=== PATIENT | male | born 1960 | race Caucasian/White ===

== ENCOUNTER 2021-02-12 06:30 | Inpatient (IN) ==
--- NOTE | 2021-01-17 10:52 | PAT Medication Instructions ---
Medication Instructions Date of Service January 17, 2021 Home Medications amlodipine [Norvasc] 5 mg PO QAM celecoxib [Celebrex] 200 mg PO QAM lisinopril 40 mg PO QAM ASK your surgeon for instructions celecoxib [Celebrex] 200 mg PO QAM DO NOT take the morning of surgery lisinopril 40 mg PO QAM Take morning of surgery With a small sip of water, OTHERWISE NOTHING TO EAT OR DRINK AFTER MIDNIGHT: amlodipine [Norvasc] 5 mg PO QAM Other Notes If you have any questions please call us at [phone] or [phone] or [phone] or [phone]
--- NOTE | 2021-01-20 14:13 | Anesthesiology Consultation ---
Date of Service January 20, 2021 Assessment & Plan (1) Encounter for pre-operative examination: - Abnormal preop EKG: LBBB and TWA (consider inferior ischemia) on preop EKG. Will arrange preop cardiology evaluation. - COVID screening: Per assessment on 01/20: Travel screen negative, no known COVID-19 positive contacts or current COVID-19 related symptoms. Surgeon arranging preop COVID testing. Awaiting results. Chart Review Chart Review: Patient seen in Pre Admission Testing Teaching & Discussion Pre-Anesthesia Teaching/Discussion Notes: Instructed NPO after midnight before surgery,except medications with 15 cc of water. Medication instructions provided according to the PAT guidelines. History Surgery Operation Date: 02/12/21 09:40 Proposed Procedures p Right Total Knee Arthroplasty - Nas Larkin DO Height/Weight Height: 6 ft 1 in Weight: 107.5 kg Allergies Allergy/AdvReac Type Severity Reaction Status Date / Time No Known Allergies Allergy Verified 12/25/20 08:52 Medications Home Medications Medication Instructions Recorded Confirmed Last Taken amlodipine [Norvasc] 5 mg PO QAM 12/25/20 12/25/20 Unknown celecoxib [Celebrex] 200 mg PO QAM 12/25/20 12/25/20 Unknown lisinopril 40 mg PO QAM 12/25/20 12/25/20 Unknown Past Medical History Medical History Hypertension Obesity Osteoarthritis Exercise / Class Metabolic Activity II 4-5 Yardwork/Stairs/Walk up hill (one FS (no CP, no SOB)) Past Surgical History Surgical History Hx of colonoscopy Past Anesthesia History No Hx of Anesthesia Complications Youngest sister: "slow to wake" History of PONV No Hx of PONV and Hx of Motion Sickness (Minimal) Social History Smoking Status: Never smoker Do You Dip or Chew Tobacco: Yes (1 can/2 days (advised none DOS)) Hx Alcohol Use: Yes alcohol intake frequency: holidays/special occasions only Hx Substance Use: No substance use type: does not use Review of Systems Patient denies chest pain, shortness of breath, dyspnea on exertion, fever, chills, cough, wheezing, palpitations. Physical Exam Vital Signs VITALS BP 125/82 P 76 TEMP 98.6 SP02 96%RA RESP 16 PHYSICAL Full cervical extension range of motion. Full TMJ range of motion. TMD 3.5 finger breaths Mallampati Score 3 Dentition: intact Lungs: clear throughout to auscultation Cardiac: regular rate and rhythm, I/ systolic murmur Spine: normal Carotid arteries: negative bruit Extremities: no edema Lab Results Anesthesia Preop Results Results Anesthesia Widget: WBC 7.24 K/uL (4.8-10.8) 01/20/21 Hgb 14.7 g/dL (14.0-18.0) 01/20/21 Hct 42.9 % (42-52) 01/20/21 Plt 284 K/uL (130-400) 01/20/21 Na 143 mmol/L (136-145) 01/20/21 K 4.3 mmol/L (3.5-5.1) 01/20/21 Cl 110 mmol/L (98-107) H 01/20/21 CO2 27 mmol/L (21-32) 01/20/21 BUN 19 mg/dl (7-18) H 01/20/21 Creat 1.13 mg/dl (0.6-1.4) 01/20/21 Glucose Level 112 mg/dl (70-99) H 01/20/21 PT 10.0 Seconds (9.0-12.0) 01/20/21 PTT 27.6 Seconds (21.0-31.0) 01/20/21 INR 1.0 (0.9-1.1) 01/20/21 HA1c 5.8 % (4.5-5.6) H 01/20/21 Urine Color Yellow 01/20/21 Urine Appearance Clear (Clear) 01/20/21 Urine pH 5.0 (4.5-7.5) 01/20/21 Urine Specific [place] 1.014 (1.000-1.030) 01/20/21 Urine Protein Negative (Negative) 01/20/21 Urine Glucose (UA) Negative (Negative) 01/20/21 Urine Ketones Negative (Negative) 01/20/21 Urine Blood Negative (Negative) 01/20/21 Urine Nitrite Negative (Negative) 01/20/21 Urine Bilirubin Negative (Negative) 01/20/21 Urine Urobilinogen Negative (Negative) 01/20/21 Urine Leukocyte Esterase Negative (Negative) 01/20/21 Blood Type O Positive 01/20/21 Antibody Screen NEGATIVE 01/20/21 Testing Electrocardiogram Date: 01/20/21 SR with occasional PVCs at 71bpm. LBBB. TWA, consider inferior ischemia. Chest X-Ray Date: 01/20/21 FINDINGS: The heart is enlarged. There is no failure. There is no focal pulmonary consolidation. There are no pleural effusions.[ IMPRESSION: No active disease in the chest.
--- NOTE | 2021-02-05 10:55 | History & Physical Report ---
Date of Service February 05, 2021 date of surgery: 02/12/21 Procedure: Right Total Knee Arthroplasty Assessment & Plan (1) Arthritis of right knee: Plan: Further care discussed with patient and at this point in time has failed conservative measures and would like to proceed with a Right total knee replacement. Plan on discharge will be home with home health physical therapy. DVT prophalaxis with TEDs, SCDs and will also place on aspirin 81 mg p.o. b.i.d. for a month postop. Patient will have follow up appointment in our office two weeks post op for staple/suture removal and re-evaluation. Patient otherwise has no other questions or concerns. History of Present Illness Chief Complaint: Right knee pain Primary Care Provider: ALANNA PCP Alex is a 60 year old male who complains of right knee pain, presents for pre-op evaluation prior to a right total knee replacement by Dr Larkin at [facility]. he complains of pain, decreased range of motion and stiffness in his right knee. Currently the patient states that the symptoms are moderate-severe and rated as 6/10. The pain is described as aching, sharp and throbbing. His symptoms are aggravated by ascending stairs, daily activities, first steps while awake walking. Prior NSAIDs include IBU, Celebrex and Aleve. he has been treated with previous visco and cortisone injections in the past without much relief. Allergies Allergy/AdvReac Type Severity Reaction Status Date / Time No Known Allergies Allergy Verified 12/25/20 08:52 Home Medications Medication Instructions Recorded Confirmed Type amlodipine 5 mg tablet (Norvasc) 5 mg PO QAM 12/25/20 12/25/20 History celecoxib 200 mg capsule (Celebrex) 200 mg PO QAM 12/25/20 12/25/20 History lisinopril 40 mg tablet 40 mg PO QAM 12/25/20 12/25/20 History Past Med/Surg History Medical History Hypertension Obesity Osteoarthritis Surgical History Hx of colonoscopy Social History Smoking Status: Never smoker Second Hand Exposure: No; Hx Alcohol Use: Yes Hx Substance Use: No Preferred Language: Mongolian Communication Ability: Effective Talent Development Specialist Required: No Beliefs That Will Affect Care: None Current Living Situation: Spouse Feels Safe at Home: Yes Assistive Devices: Glasses Review of Systems Review of Systems: All systems reviewed & are unremarkable except as noted in HPI & below Constitutional: no fever, no chills and no sweats Respiratory: no cough and no dyspnea Cardiovascular: no chest pain, no dyspnea and no orthopnea Gastrointestinal: no abdominal pain, no nausea and no vomiting Musculoskeletal: as per Subjective / HPI Physical Exam Physical Exam: HT: 6ft 1in WT: 107.5kg Constitutional: WD/WN, vitals as above no acute distress Respiratory: normal respiratory effort, lungs clear to auscultation no respiratory distress, no labored breathing and does not use accessory muscles Cardiovascular: RRR, no murmur, no edema Gastrointestinal (Abdomen): normal bowel sounds, soft, nontender, no hepatosplenomegaly Musculoskeletal: Knee: + knee abnormal to inspection (Right Knee), + effusion (+1 effusion), + limited ROM of knee (ROM 0/3/110), + knee ROM with crepitation, + joint line tenderness (medial joint line) and + Brenda's sign positive; no deformity, no skin erythema, no ecchymosis, no valgus laxity, no varus laxity, anterior drawer test negative, Darell's sign negative and pivot shift test negative exam above in relation to patients right knee: Results & Data Results & Data ([facility]) Diagnostic Findings Right Knee X-ray: Right knee series showing advanced degenerative changes to the right knee, narrowing of the medial compartment and patello-femoral joint with patellar spurring noted, findings showing joint space narrowing of the medial compartment and patello-femoral joint, osteophyte formation and subchondral sclerosis noted. overall varus alignment. no acute bony pathology noted.
[~2021-02-12 06:30] MED LIST: ACETAMINOPHEN 500 MG TAB PO SCH; CeleBREX 200 MG CAP PO SCH; FAMOTIDINE 20 MG TAB PO SCH; GABAPENTIN 600 MG DOSE PO SCH; LR 500ML BOLUS, THEN 15ML/HR IV SCH; METOCLOPRAMIDE HCL 10 MG TABLET PO SCH; ROPIVACAINE 0.5% HCL/PF 150 MG, BUPIVACAINE 0.75% MPF 20 ML, EPINEPHrine 30MG/30ML (OR ... INSTIL SCH; TRANEXAMIC ACID 1,000 MG **IV Intra-op IV SCH; TRANEXAMIC ACID 1,000 MG **IV Pre-op IV SCH; ceFAZolin 2000MG 2,000 MG/15 ML SYR IV SCH; dexAMETHasone 4 MG TAB PO SCH
[2021-02-12] MEDS ORDERED: BUPIVACAINE 0.25% 30 ML VIAL ONE (06:35)
[2021-02-12] MEDS ORDERED: BUPIVACAINE 0.5 % 5 MG/1 ML PF 10ML VIAL ONE (06:35)
[2021-02-12] MEDS ORDERED: MIDAZOLAM HCL 1 MG/ML 2ML VIAL ONE (09:16)
[2021-02-12] MEDS ORDERED: fentaNYL citrate 100 MCG/2 ML VIAL ONE (09:16)
--- NOTE | 2021-02-12 09:36 | History & Physical Bridge Note ---
Date of Service February 12, 2021 History & Physical Bridge Note I have examined the patient, reviewed the History & Physical and in the interval since the performance of the History & Physical I have noted the following changes of clinical significance: no changes noted
[2021-02-12] MEDS ORDERED: ePHEDrine sulfate 50 MG/ML AMP IV PRN (10:05)
[2021-02-12] MEDS ORDERED: ATROPINE SULFATE 0.1 MG/ML 10ML SYR IV PRN (10:05)
[2021-02-12] MEDS ORDERED: ONDANSETRON INJ 2 MG/ML 2 ML VIAL IV PRN ×2 (10:05→14:06)
[2021-02-12] MEDS ORDERED: fentaNYL citrate 100 MCG/2 ML VIAL IV PRN (10:05)
[2021-02-12] MEDS ORDERED: ORTHO JOINT ANESTHETIC ONE (10:17)
--- NOTE | 2021-02-12 11:54 | Operative Report ---
Post Operative Report Pre & Post Diagnosis Operation Date: 02/12/21 09:25 Pre-Op Diagnosis: Unilateral Primary Osteoarthritis, Right Knee I identified the patient and participated in the time-out.: Yes Procedure Operation Date: 02/12/21 09:25 Actual Procedures p Right Total Knee Arthroplasty(Right) utilizing [employer] persona size 12 femur right CR tibia size G polysize 13 patella 34 oval- Nas Larkin DO Surgeon Nas Larkin DO Multifold Operator Billy ARREDONDO Estimated Blood Loss 5 Findings Consistent with Post-Op Diagnosis Patient presents with severe end-stage DJD right knee varus alignment subchondral cystic changes marginal osteophytes [id number] eburnated bone moderate to large effusion Specimens Bone and cartilage Drains Medium bore Hemovac Anesthesia Type MAC Spinal Regional Complications none Disposition Accompanied Patient To Recovery: No Disposition: Recovery Room Indications Patient presents with severe end-stage DJD right knee no response to conservative management clinic physical therapy anti-inflammatories relative rest activity modification corticosteroid injection viscosupplementation the above intraoperative findings were noted. Description of Procedure After proper prepping and draping of the Right lower extremity anterior midline incision was made over the region of the extensor extensor mechanism after meticulous hemostasis was obtained and maintained in subcutaneous tissues a medial parapatellar incision was made The patella was subluxed lateralward the medial lateral gutter were cleaned from any hypertrophic synovitis and scar tissue of the distal femoral block was placed and the distal femoral osteotomy cut was made subsequently the chamfers anterior and posterior osteotomy cuts were made utilizing the 4-in-1 block the tibia was subsequently subluxed anteriorward medial and ateral meniscal remnants were excised in their entirety remnants of the anterior and posterior cruciate ligaments were excised in their entirety excellent exposure of the proximal tibia was obtained the tibial osteotomy guide was placed on the proximal tibial osteotomy cut was made once again the knee was irrigated with copious amounts of sterile saline solution the patella was subsequently everted lateralward thickened scar tissue around the patella was removed the patella was subsequently cut utilizing a freehand technique and was drilled prepared for final preparation and placement of patella socially flexion-extension gaps were checked and the equal and symmetric trials were placed to the appropriate femoral and tibial trials with poly-spacer being placed for equal flexion and extension gaps and full range of motion including extension to 0 and flexion to 140 the trial components after having been taken to recovery range of motion was subsequently removed meticulous hemostasis was obtained and maintained subsequently a knee block injection of joint cocktail including ropivacaine 0.5% 150 mg. Bupivacaine 0.5% epinephrine 1-200,030 mL's toradol 30 mg dexamethasone 4 mg ketamine 10 mg clonidine 100 micrograms normal saline solution 30 mg was infiltrated into the soft tissues of the posterior knee medial lateral gutters and periosteal synovium special attention was paid to protect neurovascular structures at all times subsequently trial components having been removed the knee was irrigated with sterile saline solution. debris was removed the proximal tibia was subsequently prepared and was made ready for the placement of the tibial component tibial component was also cemented and tamped into position the femoral component was subsequently placed and cemented in the position the patellar component was subsequently cemented in position because hemostasis once again obtained and maintained wound having been thoroughly irrigated with debridement and debridement lavage was performed as well as a medial parapatellar incision closed with #1 Vicryl in interrupted fashion subcutaneous was closed with #2 Vicryl skin was closed with skin clips. PA-C was necessary for prepping and drapping as well as wound closure of deep fascia Sub cutaneous tissue and skin and was necessary for the case. A sterile compressive dressing was placed patient was taken to recovery in stable condition of report dictated by Trae I attest to the content of the Intraoperative Record and any orders documented therein. Any exceptions are noted below. I attest to the content of the Intraoperative Record and any orders documented therein. Any exceptions are noted below.
--- NOTE | 2021-02-12 13:11 | XRay Report ---
XR knee RT 1 or 2V routine HISTORY: 60 years-old Male Surgical Post Op right knee total joint arthroplasty COMPARISON: None TECHNIQUE: 2 views the right knee FINDINGS: Right knee total joint arthroplasty and patella resurfacing. Expected postoperative soft tissue swell ing with deep tissue air. No acute fracture, dislocation or unexpected opaque foreign body. Surgical drainage catheter. IMPRESSION: Right knee total joint arthroplasty with expected postoperative changes. ACT 112: Negative or not required by law. The above report was generated using voice recognition software. It may contain grammatical, syntax o r spelling errors. Electronically signed by: Kevin Ma M.D. 02/12/2021 1:09 PM
--- NOTE | 2021-02-12 13:27 | Anesthesiology Progress Note ---
Date of Service February 12, 2021 Anesthesia Post Procedure Vital Signs Vital Signs: Temp Pulse Pulse Resp BP Pulse Ox 02/12/21 13:15 70 16 116/66 94 02/12/21 13:05 63 16 115/64 99 02/12/21 12:55 65 12 112/62 99 02/12/21 12:45 73 18 109/39 L 100 02/12/21 12:38 36.5 C 69 12 104/82 100 02/12/21 06:56 36.6 C 63 18 135/91 97 Transfer of Care Handoff Completed per policy Notes Mental Status: alert / awake / arousable and participated in evaluation Nausea / Vomiting: adequately controlled Pain: adequately controlled Airway Patency, RR, SpO2: stable & adequate BP & HR: stable & adequate Hydration State: stable & adequate Neuraxial Anesthesia: was administered and sensory block is resolving Anesthetic Complications: no major complications apparent and Pt Satisfied with anesthetic care
[2021-02-12] MEDS ORDERED: HYDROmorphone INJ 0.5 MG/0.5 ML SYR IV PRN (14:06)
[2021-02-12] MEDS ORDERED: diphenhydrAMINE 50 MG/ML VIAL IV PRN (14:06)
[2021-02-12] MEDS ORDERED: NALOXONE HCL 0.4 MG/1 ML VIAL/CARP IV PRN (14:06)
[2021-02-12] MEDS ORDERED: MAGNESIUM HYDROXIDE SUSP 30 ML UDC PO PRN (14:06)
[2021-02-12] MEDS ORDERED: bisacodyL 10 MG SUPP PR PRN (14:06)
[2021-02-12] MEDS: SODIUM CHLORIDE 0.9% 1000ML 1,000 ML IV SCH (14:49)
[2021-02-12] MEDS: ACETAMINOPHEN 500 MG TAB PO SCH ×2 (14:49→22:45)
[2021-02-12] MEDS: ceFAZolin 2000MG 2,000 MG/15 ML SYR IV SCH (18:30)
[2021-02-12] MEDS ORDERED: SENNA 8.6 MG TAB PO SCH (21:00)
[2021-02-12] MEDS: ASPIRIN 81 MG ECTAB PO SCH (21:06)
[2021-02-12] MEDS: CeleBREX 200 MG CAP PO SCH (21:06)
[2021-02-12] MEDS: DOCUSATE SODIUM 100 MG CAP PO SCH (21:06)
[2021-02-13] MEDS: ceFAZolin 2000MG 2,000 MG/15 ML SYR IV SCH (03:46)
[2021-02-13] MEDS: ACETAMINOPHEN 500 MG TAB PO SCH (05:20)
[2021-02-13 06:26] LABS: Hematocrit (blood only) 36.6 % (42-52); Hemoglobin 12.8 g/dL (14.0-18.0); Mean Corpuscular Hemoglobin 31.3 pg (25-34); Mean Corpuscular Volume 89.5 fL (80-100); Mean Platelet Volume 10.9 fL (7.4-10.4); Platelet Count 209 K/uL (130-400); RDW Coefficient of Variation 12.2 % (11.5-14.5); RDW Standard Deviation 39.8 fL (36.4-46.3); Red Blood Count 4.09 M/uL (4.7-6.1); White Blood Count 19.71 K/uL (4.8-10.8)
[2021-02-13 07:07] LABS: BUN Creatinine Ratio 20.1 (10-20); Calcium 7.7 mg/dl (8.5-10.1); Creatinine Clr Calc Pharmacy 88.7 ml/min; Est GFR (African American) 83.2 ml/min; Est GFR (Non-African American) 71.8 ml/min
[2021-02-13] MEDS: SODIUM CHLORIDE 0.9% 1000ML 1,000 ML IV SCH (07:15)
[2021-02-13] MEDS: CeleBREX 200 MG CAP PO SCH (07:37)
[2021-02-13] MEDS: DOCUSATE SODIUM 100 MG CAP PO SCH (07:38)
[2021-02-13] MEDS: ASPIRIN 81 MG ECTAB PO SCH (07:38)
[2021-02-13] MEDS: oxyCODONE HCL IR 5 MG TAB (IMMEDIATE RELEASE) PO PRN ×2 (07:46→11:55)
[2021-02-13] MEDS ORDERED: MULTIVITAMIN TAB PO SCH (09:00)
[2021-02-13] MEDS ORDERED: amLODIPine BESYLATE 5 MG TAB PO SCH (09:00)
[2021-02-13] MEDS ORDERED: lisinopril 40 MG TAB PO SCH (09:00)
--- NOTE | 2021-02-13 09:10 | Orthopedic Progress Note ---
Date of Service February 13, 2021 Assessment & Plan (1) Arthritis of right knee: Plan: Postop day 1 status post right total knee arthroplasty. PT/OT protocols. Weightbearing as tolerated. DVT prophylaxis-aspirin p.o. twice daily, Elan, SHRUTHI villafana. Pain management as written. Leukocytosis-patient is asymptomatic at this time. Likely secondary to surgical stress and/or preoperative steroids. DC planning-patient is planning for outpatient PT upon discharge. Admission and Anticipated Discharge Date Admission Date: February 12, 2021 Supervising Physician Co-Signing Physician Notes Patient seen and examined. He is doing very well. He has mobilized well with therapy. Pain is well controlled. Planning for discharge home today. Subjective Postop day 1 Patient currently sitting up in bed awake and alert. No complaints this morning. Pain is controlled. Denies shortness of breath, chest pain, lightheadedness. He is hoping to go home today. Physical Exam Physical Exam: Dressings are clean, dry, and intact. Calves are soft nontender. Neurovascular is intact. Toes are mobile. He has good dorsiflexion and plantarflexion of the right foot. Hemovac drainage was approximately 100 mL from the previous shift. Results & Data ([facility]) Vital Signs (Past 12 Hours) Vital Signs Temp Pulse Resp BP Pulse Ox 02/13/21 08:18 36.6 C 66 18 97 02/13/21 07:35 61 16 166/84 H 02/13/21 01:54 36.6 C 66 18 134/78 98 02/12/21 23:23 36.7 C 72 16 144/74 H 94 Laboratory Results Laboratory Results WBC 19.71 K/uL (4.8-10.8) H 02/13/21 06:12 RBC 4.09 M/uL (4.7-6.1) L 02/13/21 06:12 Hgb 12.8 g/dL (14.0-18.0) L 02/13/21 06:12 Hct 36.6 % (42-52) L 02/13/21 06:12 MCV 89.5 fL (80-100) 02/13/21 06:12 MCH 31.3 pg (25-34) 02/13/21 06:12 MCHC 35.0 g/dL (32-36) 02/13/21 06:12 RDW Std Deviation 39.8 fL (36.4-46.3) 02/13/21 06:12 RDW Coeff of Jade 12.2 % (11.5-14.5) 02/13/21 06:12 Plt Count 209 K/uL (130-400) 02/13/21 06:12 MPV 10.9 fL (7.4-10.4) H 02/13/21 06:12 Sodium 137 mmol/L (136-145) 02/13/21 06:12 Potassium 4.0 mmol/L (3.5-5.1) 02/13/21 06:12 Chloride 111 mmol/L (98-107) H 02/13/21 06:12 Carbon Dioxide 19 mmol/L (21-32) L 02/13/21 06:12 Anion Gap 7.0 (3-11) 02/13/21 06:12 BUN 22 mg/dl (7-18) H 02/13/21 06:12 Creatinine 1.11 mg/dl (0.6-1.4) 02/13/21 06:12 Est Cr Clr Drug Dosing 88.7 ml/min 02/13/21 06:12 Est GFR ( Amer) 83.2 ml/min 02/13/21 06:12 Est GFR (Non-Af Amer) 71.8 ml/min 02/13/21 06:12 BUN/Creatinine Ratio 20.1 (10-20) H 02/13/21 06:12 Glucose 195 mg/dl (70-99) H 02/13/21 06:12 Calcium 7.7 mg/dl (8.5-10.1) L 02/13/21 06:12 COVID-19 Eval Order Covid19 [facility]Now [facility] 02/12/21 06:41 SARS-CoV-2, RNA, NAAT NEGATIVE (NEGATIVE) 02/12/21 06:41 Impressions Knee X-Ray 02/12/21 12:43 XR knee RT 1 or 2V routine HISTORY: 60 years-old Male Surgical Post Op right knee total joint arthroplasty COMPARISON: None TECHNIQUE: 2 views the right knee FINDINGS: Right knee total joint arthroplasty and patella resurfacing. Expected postoperative soft tissue swelling with deep tissue air. No acute fracture, dislocation or unexpected opaque foreign body. Surgical drainage catheter. IMPRESSION: Right knee total joint arthroplasty with expected postoperative changes. ACT 112: Negative or not required by law. The above report was generated using voice recognition software. It may contain grammatical, syntax or spelling errors. Electronically signed by: Kevin Ma M.D. 02/12/2021 1:09 PM
--- NOTE | 2021-02-17 10:14 | Discharge Summary ---
Date of Service February 17, 2021 Admission HPI Per Admitting Provider Alex is a 60 year old male who complains of right knee pain, presents for pre- op evaluation prior to a right total knee replacement by Dr Larkin at [facility]. he complains of pain, decreased range of motion and stiffness in his right knee. Currently the patient states that the symptoms are moderate-severe and rated as 6/10. The pain is described as aching, sharp and throbbing. His symptoms are aggravated by ascending stairs, daily activities, first steps while awake walking. Prior NSAIDs include IBU, Celebrex and Aleve. he has been treated with previous visco and cortisone injections in the past without much relief. Admission Exam Per Admitting Provider Physical Exam: HT: 6ft 1in WT: 107.5kg Constitutional: WD/WN, vitals as above no acute distress Respiratory: normal respiratory effort, lungs clear to auscultation no respiratory distress, no labored breathing and does not use accessory muscles Cardiovascular: RRR, no murmur, no edema Gastrointestinal (Abdomen): normal bowel sounds, soft, nontender, no hepatosplenomegaly Musculoskeletal: Knee: + knee abnormal to inspection (Right Knee), + effusion (+1 effusion), + limited ROM of knee (ROM 0/3/110), + knee ROM with crepitation, + joint line tenderness (medial joint line) and + Brenda's sign positive; no deformity, no skin erythema, no ecchymosis, no valgus laxity, no varus laxity, anterior drawer test negative, Darell's sign negative and pivot shift test negative exam above in relation to patients right knee: Principal Diagnosis Osteoarthritis Right Knee Discharge Data Allergies Allergy/AdvReac Type Severity Reaction Status Date / Time No Known Allergies Allergy Verified 02/12/21 06:49 Procedures Performed Operation Date: 02/12/21 09:25 Actual Procedures p Right Total Knee Arthroplasty(Right) - Nas Larkin DO Ordered Studies 02/12/21 05:00 US - OR guided needle placemen Routine Hospital Course (1) Arthritis of right knee: Date of Service February 13, 2021 Assessment & Plan (1) Arthritis of right knee: Plan: Postop day 1 status post right total knee arthroplasty. PT/OT protocols. Weightbearing as tolerated. DVT prophylaxis-aspirin p.o. twice daily, SCDs, SHRUTHI hose. Pain management as written. Leukocytosis-patient is asymptomatic at this time. Likely secondary to surgical stress and/or preoperative steroids. DC planning-patient is planning for outpatient PT upon discharge. Pt remained stable; progressed well with his PT/OT and was felt he could be dc'd to home. Admission and Anticipated Discharge Date Admission Date: February 12, 2021 Supervising Physician Co-Signing Physician Notes Patient seen and examined. He is doing very well. He has mobilized well with therapy. Pain is well controlled. Planning for discharge home today. Subjective Postop day 1 Patient currently sitting up in bed awake and alert. No complaints this morning. Pain is controlled. Denies shortness of breath, chest pain, lightheadedness. He is hoping to go home today. Physical Exam Physical Exam: Dressings are clean, dry, and intact. Calves are soft nontender. Neurovascular is intact. Toes are mobile. He has good dorsiflexion and plantarflexion of the right foot. Hemovac drainage was approximately 100 mL from the previous shift. Results & Data ([facility]) Vital Signs (Past 12 Hours) Vital Signs Temp Pulse Resp BP Pulse Ox 02/13/21 08:18 36.6 C 66 18 97 02/13/21 07:35 61 16 166/84 H 02/13/21 01:54 36.6 C 66 18 134/78 98 02/12/21 23:23 36.7 C 72 16 144/74 H 94 Laboratory Results Laboratory Results WBC 19.71 K/uL (4.8-10.8) H 02/13/21 06:12 RBC 4.09 M/uL (4.7-6.1) L 02/13/21 06:12 Hgb 12.8 g/dL (14.0-18.0) L 02/13/21 06:12 Hct 36.6 % (42-52) L 02/13/21 06:12 MCV 89.5 fL (80-100) 02/13/21 06:12 MCH 31.3 pg (25-34) 02/13/21 06:12 MCHC 35.0 g/dL (32-36) 02/13/21 06:12 RDW Std Deviation 39.8 fL (36.4-46.3) 02/13/21 06:12 RDW Coeff of Jade 12.2 % (11.5-14.5) 02/13/21 06:12 Plt Count 209 K/uL (130-400) 02/13/21 06:12 MPV 10.9 fL (7.4-10.4) H 02/13/21 06:12 Sodium 137 mmol/L (136-145) 02/13/21 06:12 Potassium 4.0 mmol/L (3.5-5.1) 02/13/21 06:12 Chloride 111 mmol/L (98-107) H 02/13/21 06:12 Carbon Dioxide 19 mmol/L (21-32) L 02/13/21 06:12 Anion Gap 7.0 (3-11) 02/13/21 06:12 BUN 22 mg/dl (7-18) H 02/13/21 06:12 Creatinine 1.11 mg/dl (0.6-1.4) 02/13/21 06:12 Est Cr Clr Drug Dosing 88.7 ml/min 02/13/21 06:12 Est GFR ( Amer) 83.2 ml/min 02/13/21 06:12 Est GFR (Non-Af Amer) 71.8 ml/min 02/13/21 06:12 BUN/Creatinine Ratio 20.1 (10-20) H 02/13/21 06:12 Glucose 195 mg/dl (70-99) H 02/13/21 06:12 Calcium 7.7 mg/dl (8.5-10.1) L 02/13/21 06:12 COVID-19 Eval Order Covid19 [facility]Now [facility] 02/12/21 06:41 SARS-CoV-2, RNA, NAAT NEGATIVE (NEGATIVE) 02/12/21 06:41 Impressions Knee X-Ray 02/12/21 12:43 XR knee RT 1 or 2V routine HISTORY: 60 years-old Male Surgical Post Op right knee total joint arthroplasty COMPARISON: None TECHNIQUE: 2 views the right knee FINDINGS: Right knee total joint arthroplasty and patella resurfacing. Expected postoperative soft tissue swelling with deep tissue air. No acute fracture, dislocation or unexpected opaque foreign body. Surgical drainage catheter. IMPRESSION: Right knee total joint arthroplasty with expected postoperative changes. ACT 112: Negative or not required by law. The above report was generated using voice recognition software. It may contain grammatical, syntax or spelling errors. Electronically signed by: Kevin Ma M.D. 02/12/2021 1:09 PM Total Time Total Time Spent Total Time Spent (In Minutes): 5 Discharge Plan Discharge Items Patient Disposition: Home - Self-Care Reason For Visit: Unilateral Primary Osteoarthritis, Right Knee Discharge Diagnosis: Right knee osteoarthritis Activity: Per Instructions section Weightbearing: Right weightbearing Weightbearing Comment: As tolerated with walker Non-emergency contact: Surgeon Call non-emergency contact if: you have any medication questions, your pain is not controlled, your temperature is above 101.5, your wound has increased redness and your wound has increased drainage Follow-up/Referrals: Nas Larkin, [Primary Care Provider] - Diet: Regular Addtl Attending Provider Instructions: ACTIVITY RECOMMENDATIONS: SELF CARE INSTRUCTIONS AFTER TOTAL KNEE REPLACEMENT A. You may need to continue a physical therapy program after discharge from the hospital. There are several options available to you. Your doctor will assist you in selecting the best one for you. 1. An out-patient facility 2 to 3 times a week for therapy or home therapy. 2. Continue working on all exercises taught to you in the hospital. Your goals should be to increase bending of your knee to 90 degrees and beyond and to fully straighten your knee. B. You may progress at your own pace from walking with a walker or crutches to a cane; then to no assistive devices. C. Make walking a part of your daily routine. Be up as much as comfortable with rest periods throughout the day. Rest with leg elevation is very important. Use the ice wrap frequently for the first 3-4 weeks. D. There are no restrictions on activities. You may ride in a car, shop, participate in inside steward/stewardess and all social activities. E. Wear the long elastic stockings (SHRUTHI hose) 20 hours a day for 2 weeks after surgery. They can be removed several times a day for laundering and for a bath. F. You may shower, no tub baths until cleared by your doctor. SPECIAL CARE INSTRUCTIONS: VERY IMPORTANT TO READ AND REVIEW A. There are a few signs you need to watch for after you are home. Call [facility] if you notice any of the followin. Increased severe knee pain. Some pain is expected especially when you exercise. 2. Increased swelling in your leg or knee; pain or swelling of the calf muscle in either lower leg. 3. Any fluid drainage from the incision. 4. Shortness of breath or chest pain. B. Please call [facility] at if you have any concerns or questions about your operation or recovery. The doctor or his nurse will return your call promptly. C. You must take antibiotics before dental work, bladder, bowel or other surgery. Your doctor will provide you with a permanent care to carry describing this precaution. IMPORTANT: * REMEMBER TO TAKE ASPIRIN, 81 MG, TWICE DAILY FOR 4 WEEKS UNLESS OTHERWISE DIRECTED. THIS IS YOUR BLOOD THINNER. * HIGH RISK PATIENTS MAY BE PRESCRIBED A STRONGER BLOOD THINNER. THIS WILL BE PROVIDED AT DISCHARGE. * CALL IF INCREASED PAIN, REDNESS, DRAINAGE OR FEVER GREATER THAT 101. * WEAR SHRUTHI HOSE 20 HOURS PER DAY FOR 2 WEEKS. * CHANGE YOUR DRESSING DAILY. KEEP YOUR WOUND COVERED UNTIL SEEN BACK IN THE OFFICE. * DERMABOND Prineo- This is a mesh tape dressing that is covered with glue. It should remain in place until the incision is properly healed, usually 10-14 days. This dressing is designed to naturally slough off. You may trim the excess mesh tape as it peels off. Incision may be briefly wet in a shower. Dry immediately by blotting with a clean, dry towel. Do not bath or swim until instructed by your doctor. Do not scratch, rub, or pick at the dressing. Do not apply any topical ointments or lotions until dressing is completely removed and/or instructed by your doctor. There may be a small piece of suture material at one end of your incision. Do not pull or trim this. If it is bothersome or catching on clothing, you may cover it with a band-aid. Call the office with any wound questions. . FOLLOW UP VISIT: If appointment is not already scheduled: Please call [facility] to make a follow-up appointment for 2 weeks after your surgery at . Stand-Alone Forms: My [employer], Smoking Cessation Medications and DC Order Prescriptions: New aspirin 81 mg Tablet,Delayed Release (Dr/Ec) 81 mg PO BID 30 Days Qty: 60 RF: 0 acetaminophen [Tylenol Extra Strength] 500 mg Tablet 1,000 mg PO Q8 14 Days Qty: 84 RF: 0 polyethylene glycol 3350 [Miralax] 17 gram powder in packet 17 g PO DAILY PRN (Reason: constipation) Qty: 5 RF: 0 cefadroxil 500 mg capsule 500 mg PO BID Qty: 28 RF: 1 oxycodone 5 mg Tablet 5 mg PO Q4H MDD 6 PRN (Reason: pain) Qty: 30 RF: 0 Continued celecoxib [Celebrex] 200 mg Capsule 200 mg PO QAM RF: 0 amlodipine [Norvasc] 5 mg Tablet 5 mg PO QAM RF: 0 lisinopril 40 mg Tablet 40 mg PO QAM RF: 0 Discharge Orders: Discharge Order (Routine); Ordered 02/13/21 Ordered By: Billy Ortega/Other Patient Handouts: Knee Replacement Total Dc Admission Data Admit Date/Time: 02/12/21 12:43 Attending Provider: Nas Larkin Admit Provider: Nas Larkin Primary Care Provider: Nas Larkin Other Interventions: Discharge Summary Assessment (RN) Last Done: 02/13/21 11:32
== END 2021-02-13 13:16 | disposition home or self-care (01) | DRG 470 ==
LOC: ASU 06:30 → 3E 06:30 → OBSVTOIN 12:43